=== PATIENT | female | born 1995 | race Caucasian/White ===

== ENCOUNTER 2018-04-01 16:07 | Inpatient (IN) | payer OTHER ==
[2018-04-01] MEDS ORDERED: DEXTROSE 50% 50 ML SYRINGE IV ×2 (17:00)
[2018-04-01] MEDS ORDERED: GLUCOSE GEL 15 GRAM TUBE PO ×2 (17:00)
[2018-04-01] MEDS ORDERED: GLUCOSE GEL 15 GRAM TUBE BUCCAL (17:00)
[2018-04-01] MEDS ORDERED: GLUCAGON 1 MG INJ IM (17:00)
[2018-04-01] MEDS ORDERED: ACETAMINOPHEN 325 MG TAB PO (17:30)
[2018-04-01] MEDS ORDERED: DOCUSATE SODIUM 100 MG CAP PO (17:30)
[2018-04-01] MEDS: INSULIN ASPART [NOVOLOG] 3 ML PEN SC ×3 (17:35→21:00)
[2018-04-01] MEDS: ACCU-CHEK XX ×4 (18:03→22:10)
[2018-04-02] MEDS: ACCU-CHEK XX ×6 (08:00→17:29)
[2018-04-02] MEDS: INSULIN ASPART [NOVOLOG] 3 ML PEN SC ×4 (08:36→17:28)
[2018-04-02] MEDS: FERROUS SULFATE (EC) 325 MG TAB PO (08:41)
[2018-04-02] MEDS: PRENATAL VITAMIN PO (08:41)
[2018-04-02] MEDS: NPH, HUMAN INSULIN ISOPHANE 3ML VIAL SC ×2 (09:12→21:06)
[2018-04-02] MEDS: AMOXICILLIN/CLAV 500 MG TAB PO ×2 (13:03→20:54)
[2018-04-03] MEDS ORDERED: INSULIN ASPART [NOVOLOG] 3 ML PEN SC (07:05)
== END 2018-04-02 21:51 | disposition home or self-care (01) | DRG 781 ==
LOC: L-D 16:07 → PP1 17:34
PROVIDERS: Obstetrics & Gynecology
DX: O24.419 Gestational diabetes mellitus in pregnancy, unspecified control (principal); Z3A.08 8 weeks gestation of pregnancy; O02.1 Missed abortion
CPT/HCPCS: 76801; 76817; 82962; 87086